=== PATIENT | male | born 1955 | race Caucasian/White ===

== ENCOUNTER 2016-11-23 06:43 | Inpatient (IN) | payer BC ==
[~2016-11-23] VITALS: Ht 180.3 cm; Wt 82.0 kg
[~2016-11-23 06:43] MED LIST: SIMV-13 PO
[2016-11-23] MEDS ORDERED: IODIXANOL 320MG/ML 100ML BTL IV ONE (07:30)
[2016-11-23] MEDS ORDERED: LIDOCAINE 2%HCL (LOCAL ANESTH.) INJ 20ML MDV ONE (07:30)
[2016-11-23] MEDS ORDERED: ANGIOMAX 250 MG VIAL IV ONE (08:13)
[2016-11-23] MEDS ORDERED: SODIUM CHL 0.9% 50 ML ONE (08:14)
[2016-11-23] MEDS ORDERED: fentaNYL CITRATE 100 MCG/2 ML VL ONE (08:14)
[2016-11-23] MEDS ORDERED: VERAPAMIL 2.5MG/ML INJ 2ML VIAL IV ONE (08:14)
[2016-11-23] MEDS ORDERED: MIDAZOLAM HCL 1MG/1ML-2 ML VIAL ONE (08:14)
[2016-11-23] MEDS ORDERED: EPTIFIBATIDE INJ (2MG/ML) 10ML VIAL IV ONE (08:16)
[2016-11-23] MEDS ORDERED: HEPARIN SODIUM (PORCINE) 5000 UNITS/ML 1ML VIAL ONE (09:03)
[2016-11-23] MEDS ORDERED: ZOLPIDEM TARTRATE 5 MG TAB PO PRN (12:30)
[2016-11-23] MEDS ORDERED: MORPHINE SULF INJ 2 MG/ML SYRINGE 1ML IV PRN (14:45)
[2016-11-23] MEDS ORDERED: NITROGLYCERIN 0.4 MG SL TAB SL PRN (14:45)
[2016-11-23 17:40] VITALS: BP 130/69
[2016-11-23 18:19] VITALS: BP 130/69
[2016-11-23 18:30] VITALS: BP 126/70
[2016-11-23] MEDS: SODIUM CHLORIDE 0.9% 1,000 ML IV SCH ×2 (18:35→23:24)
[2016-11-23 19:00] VITALS: BP 116/69
[2016-11-23 21:00] VITALS: BP 124/80
[2016-11-23] MEDS: MUPIROCIN 2% OINT 22GM TOP SCH (21:00)
[2016-11-23] MEDS ORDERED: CHLORHEXIDINE 0.12% ORAL rinse 473ML MT ONE (22:29)
[2016-11-23 23:00] VITALS: BP 124/69
[2016-11-24] VITALS (46 sets, daily range): BP systolic 19–126; BP diastolic 5–80
[2016-11-24] MEDS ORDERED: CHLORHEXIDINE 4% TOPICAL soln 473ML TOP ONE (02:00)
[2016-11-24 03:46] LABS: Basophils # (auto) 0.1 uL; Basophils % (auto) 1.7 % (0.0-2.0); DEFINITIVE VIEW TRANSMISSION; Eosinophils # (auto) 0.1 uL; Eosinophils % (auto) 1.4 % (0.0-7.0); Hematocrit 47.2 % (41.0-53.0); Hemoglobin 13.4 g/dL (13.5-17.5); Lymphocytes # (auto) 1.6 uL; Lymphocytes % (auto) 19.6 % (10.0-50.0); Mean Corpuscular Hemoglobin 26.4 pg (28.0-32.0); Mean Corpuscular Hgb Conc. 28.4 g/dL (32.0-36.0); Mean Corpuscular Volume 92.8 fL (80.0-100.0); Mean Platelet Volume 9.3 fL (7.4-10.4); Monocytes # (auto) 0.5 uL; Monocytes % (auto) 6.3 % (0.0-12.0); Neutrophils # (auto) 5.7 uL; Platelet Count (auto) 220 10^3/uL (140-450); Red Cell Distribution Width 12.3 % (11.6-16.0)
[2016-11-24 03:59] LABS: INR 1.1 (0.9-1.15); Partial Thromboplastin Time 29.3 sec (22.64-33.71); Prothrombin Time 11.3 sec (9.37-12.3)
[2016-11-24 04:05] LABS: BUN/Creatinine Ratio 17.2; Calcium 8.1 mg/dL (8.5-10.1); Magnesium 2.4 mg/dL (1.6-2.6); Potassium 3.8 mmol/L (3.5-5.1)
[2016-11-24] MEDS ORDERED: ACCU-CHEK COMFORT CURVE STRIP VI ONE (06:00)
[2016-11-24] MEDS ORDERED: CHLORHEXIDINE 0.12% ORAL rinse 473ML MT ONE (06:00)
[2016-11-24] MEDS: MUPIROCIN 2% OINT 22GM TOP SCH (06:13)
[2016-11-24] MEDS ORDERED: ROCURONIUM 10MG/ML 10ML VIAL IV ONE ×2 (06:48→09:33)
[2016-11-24] MEDS ORDERED: ePHEDrine SULFATE 50 MG/ML AMP ONE (06:53)
[2016-11-24] MEDS ORDERED: LIDOCAINE 2%HCL (LOCAL ANESTH.) INJ 20ML MDV ONE (06:53)
[2016-11-24] MEDS ORDERED: ceFAZolin 1GM/50ML D5W 50 ML IV ONE (07:00)
[2016-11-24] MEDS ORDERED: VANCOMYCIN 1GM/250ML D5W 250 ML IV ONE (07:00)
[2016-11-24] MEDS ORDERED: MIDAZOLAM HCL 1MG/1ML-2 ML VIAL ONE (07:07)
[2016-11-24] MEDS ORDERED: NEOMYCIN-BACITRACIN-POLYM 15GM TOP OINT TOP ONE (07:20)
[2016-11-24] MEDS ORDERED: PAPAVERINE HCL 60 MG/2 ML 2ML VIAL ONE (07:20)
[2016-11-24] MEDS ORDERED: HEPARIN 1,000 UNITS/ml 1ML VIAL ONE (07:20)
[2016-11-24] MEDS ORDERED: ceFAZolin 1GM VL ONE ×2 (07:20→08:20)
[2016-11-24] MEDS ORDERED: PHENYLEPHRINE INJ 20 MG in NS 0.9% 248 ML IV ONE (08:00)
[2016-11-24] MEDS ORDERED: EPINEPHrine HCL INJECTION 4 MG in D5W 5% 250 ML IV ONE (08:00)
[2016-11-24] MEDS ORDERED: HEPARIN 30000 UNITS in SODIUM CHLORIDE 0.9% 1000 ML IV ONE (08:00)
[2016-11-24] MEDS ORDERED: InsuLIN R (HUMAN) 100 UNITS in SODIUM CHL 0.9% 99 ML IV ONE (08:00)
[2016-11-24] MEDS ORDERED: AMINOCAPROIC ACID 5 GM in SODIUM CHL 0.9% 250 ML IV ONE (08:00)
[2016-11-24] MEDS ORDERED: VASOPRESSIN 50 UNITS in SODIUM CHL 0.9% 247.5 ML IV ONE (08:00)
[2016-11-24] MEDS ORDERED: AMINOCAPROIC ACID 10 GM in SODIUM CHL 0.9% 100 ML IV ONE (08:00)
[2016-11-24] MEDS ORDERED: fentaNYL CITRATE 10 ML ONE (08:18)
[2016-11-24] MEDS ORDERED: ALBUMIN 25% 200 ML IV ONE (08:32)
[2016-11-24] MEDS ORDERED: ALBUMIN 25% 50 ML IV ONE (08:32)
[2016-11-24] MEDS ORDERED: DEXAMETHASONE SODIUM PHOSP 120 MG/30ml VIAL IV ONE (09:45)
[2016-11-24] MEDS ORDERED: HEPARIN SODIUM (PORCINE) 5000 UNITS/ML 1ML VIAL SC ONE (09:45)
[2016-11-24] MEDS ORDERED: CALCIUM CHLOR(10%) 100MG/ML 10ML SYRINGE IV ONE ×2 (09:45→10:46)
[2016-11-24] MEDS ORDERED: MAGNESIUM SULF 50% 40 MEQ/10 ML VL IV ONE (09:45)
[2016-11-24] MEDS ORDERED: LIDOCAINE 50MG/5ML INJ 5ML SYRINGE IV ONE (09:45)
[2016-11-24] MEDS ORDERED: POTASSIUM CHL 2MEQ/ML 20ML IV ONE (09:45)
[2016-11-24] MEDS ORDERED: ADENOSINE 6 MG/2 ML INJ IV ONE (09:45)
[2016-11-24] MEDS ORDERED: PHENYLEPHRINE HCL 10 MG/ML VL IV ONE (09:45)
[2016-11-24] MEDS ORDERED: SODIUM BICARBONATE 8.4% INJ 50ML SYRINGE IV ONE (09:45)
[2016-11-24] MEDS ORDERED: NOREPINEPHRINE BITARTRATE 250 ML IV ONE (10:45)
[2016-11-24] MEDS ORDERED: PHENYLEPHRINE IV 250 ML IV ONE (10:45)
[2016-11-24] MEDS ORDERED: DOPamine 1600MCG/ML 250 ML IV ONE (10:46)
[2016-11-24] MEDS ORDERED: MILRINONE 20MG/100ML 100 ML IV ONE (10:46)
[2016-11-24] MEDS ORDERED: AMIODARONE HCL (50 MG/ ML) 3 ML VIAL IV ONE (10:46)
[2016-11-24] MEDS ORDERED: ALBUMIN 5% 750 ML IV ONE (10:47)
[2016-11-24] MEDS ORDERED: SODIUM BICARBONATE 8.4% INJ 50ML SYRINGE ONE (10:47)
[2016-11-24] MEDS: SODIUM CHLORIDE 0.9% 500 ML IV SCH (12:45)
[2016-11-24] MEDS ORDERED: METOCLOPRAMIDE HCL 5MG/ml INJ 2ml VIAL IV PRN (12:45)
[2016-11-24] MEDS: PROPOFOL 100 ML IV SCH ×2 (12:45→19:48)
[2016-11-24] MEDS ORDERED: MORPHINE SULFATE 4 MG/ML SYRG IV PRN (12:45)
[2016-11-24] MEDS: NOREPINEPHRINE BITARTRATE 250 ML IV SCH (12:45)
[2016-11-24] MEDS ORDERED: ONDANSETRON HCL 4 MG/2 ML VIAL IV PRN (12:45)
[2016-11-24] MEDS ORDERED: INSULIN DRIP 100 UNIT/100ML 100 ML IV SCH (12:45)
[2016-11-24] MEDS ORDERED: ALBUMIN 5% 250 ML IV PRN (12:45)
[2016-11-24] MEDS ORDERED: MAGNESIUM SULFATE 1GM/100ML 100 ML IV PRN (12:45)
[2016-11-24] MEDS: MILRINONE 20MG/100ML 100 ML IV SCH (12:45)
[2016-11-24] MEDS: NICARDIPINE 25MG/250ML BAG KIT 250 ML IV SCH ×3 (12:45→22:45)
[2016-11-24] MEDS ORDERED: DEXTROSE (50%) 50ML SYRG IV PRN (12:45)
[2016-11-24] MEDS ORDERED: AMIODARONE HCL 150 MG in D5W 5% 100 ML IV ONE (12:45)
[2016-11-24] MEDS ORDERED: NITROGLYCERIN 50MG/250ML 250 ML IV SCH (12:45)
[2016-11-24] MEDS: PHENYLEPHRINE IV 250 ML IV SCH ×2 (12:45→21:07)
[2016-11-24] MEDS ORDERED: SODIUM BICARBONATE 8.4% INJ 50ML SYRINGE IV PRN (12:45)
[2016-11-24] MEDS: D5W/SOD CHL 0.45% 1,000 ML IV SCH (12:45)
[2016-11-24] MEDS ORDERED: AMIODARONE HCL 900 MG in DEXTROSE 500 ML IV SCH ×2 (13:00→19:00)
[2016-11-24] MEDS: ACCU-CHEK COMFORT CURVE STRIP VI SCH ×10 (13:00→23:00)
[2016-11-24] MEDS ORDERED: PROTAMINE SULFATE 250 MG/25 ML VL IV ONE (13:15)
[2016-11-24 13:28] LABS: Basophils # (auto) 0.3 uL; Basophils % (auto) 1.3 % (0.0-2.0); Eosinophils # (auto) 0 uL; Eosinophils % (auto) 0.1 % (0.0-7.0); Hematocrit 40.4 % (41.0-53.0); Hemoglobin 13.4 g/dL (13.5-17.5); Lymphocytes # (auto) 0.9 uL; Lymphocytes % (auto) 4.5 % (10.0-50.0); Mean Corpuscular Hemoglobin 30.7 pg (28.0-32.0); Mean Corpuscular Hgb Conc. 33.2 g/dL (32.0-36.0); Mean Corpuscular Volume 92.5 fL (80.0-100.0); Mean Platelet Volume 9.5 fL (7.4-10.4); Monocytes # (auto) 0.4 uL; Monocytes % (auto) 2.2 % (0.0-12.0); Neutrophils # (auto) 18.3 uL; Neutrophils % (auto) 91.9 % (37.0-80.0); Platelet Count (auto) 151 10^3/uL (140-450); Red Cell Distribution Width 12.1 % (11.6-16.0); SUSPECT VIEW TRANSMISSION; White Blood Cell 19.9 10^3/uL (4.4-10.8)
[2016-11-24 13:40] LABS: Partial Thromboplastin Time 26.4 sec (22.64-33.71)
[2016-11-24 13:41] LABS: INR 1.23 (0.9-1.15); Prothrombin Time 12.7 sec (9.37-12.3)
[2016-11-24 13:46] LABS: Albumin 3.5 g/dL (3.4-5.0); Calcium 7.7 mg/dL (8.5-10.1); Magnesium 3.5 mg/dL (1.6-2.6); Phosphorus 1.4 mg/dL (2.6-4.90); Potassium 4.2 mmol/L (3.5-5.1); Total Protein 5.3 g/dL (6.4-8.2)
[2016-11-24] MEDS: ceFAZolin 1GM 2 GM in D5W 5% 100 ML IV SCH ×2 (14:00→22:30)
[2016-11-24] MEDS ORDERED: SODIUM PHOSPHATES 20 MEQ in SODIUM CHL 0.9% 100 ML IV ONE (14:45)
[2016-11-24] MEDS ORDERED: CALCIUM GLUC 4.65 MEQ/10ML 4.65 MEQ in SODIUM CHL 0.9% 50 ML IV ONE (14:45)
[2016-11-24] MEDS: VANCOMYCIN 1GM/250ML D5W 250 ML IV SCH (17:50)
[2016-11-24] MEDS: ACETAMINOPHEN IV 100 ML IV SCH (17:51)
[2016-11-24] MEDS: POTASSIUM CHL 20MEQ/100ML 100 ML IV PRN ×4 (19:16→23:09)
[2016-11-24] MEDS: CHLORHEXIDINE 0.12% ORAL rinse 473ML MT SCH (22:00)
[2016-11-24 22:44] LABS: Basophils # (auto) 0 uL; Eosinophils # (auto) 0 uL; Hematocrit 35.4 % (41.0-53.0); Hemoglobin 11.7 g/dL (13.5-17.5); Lymphocytes # (auto) 0.4 uL; Lymphocytes % (auto) 2.5 % (10.0-50.0); Mean Corpuscular Hemoglobin 30.6 pg (28.0-32.0); Mean Corpuscular Hgb Conc. 33.1 g/dL (32.0-36.0); Mean Corpuscular Volume 92.5 fL (80.0-100.0); Monocytes # (auto) 0.4 uL; Monocytes % (auto) 2.6 % (0.0-12.0); Neutrophils # (auto) 16.4 uL; Neutrophils % (auto) 94.9 % (37.0-80.0); Platelet Count (auto) 194 10^3/uL (140-450); White Blood Cell 17.3 10^3/uL (4.4-10.8)
[2016-11-24 22:53] LABS: BUN/Creatinine Ratio 13.6; Calcium 7.3 mg/dL (8.5-10.1); Magnesium 2.8 mg/dL (1.6-2.6); Phosphorus 2.2 mg/dL (2.6-4.90); Potassium 3.9 mmol/L (3.5-5.1)
[2016-11-25] VITALS (87 sets, daily range): BP systolic 17–143; BP diastolic 5–143
[2016-11-25] MEDS: MILRINONE 20MG/100ML 100 ML IV SCH ×2 (00:02→11:19)
[2016-11-25] MEDS: POTASSIUM CHL 20MEQ/100ML 100 ML IV PRN ×3 (00:09→03:31)
[2016-11-25] MEDS: ACCU-CHEK COMFORT CURVE STRIP VI SCH ×14 (00:26→20:09)
[2016-11-25] MEDS: ACETAMINOPHEN IV 100 ML IV SCH ×3 (00:26→12:17)
[2016-11-25] MEDS ORDERED: AMIODARONE HCL 900 MG IV ONE (01:29)
[2016-11-25] MEDS: PROPOFOL 100 ML IV SCH ×3 (01:31→18:27)
[2016-11-25] MEDS ORDERED: AMIODARONE HCL 900 MG in DEXTROSE 500 ML IV SCH ×2 (02:21→08:21)
[2016-11-25] MEDS: D5W/SOD CHL 0.45% 1,000 ML IV SCH ×4 (03:30→20:45)
[2016-11-25] MEDS: NICARDIPINE 25MG/250ML BAG KIT 250 ML IV SCH ×3 (03:45→13:44)
[2016-11-25 05:13] LABS: Magnesium 2.6 mg/dL (1.6-2.6); Potassium 4.4 mmol/L (3.5-5.1)
[2016-11-25 05:16] LABS: BUN/Creatinine Ratio 14.9
[2016-11-25 05:20] LABS: Hematocrit 35.3 % (41.0-53.0); Hemoglobin 11.6 g/dL (13.5-17.5); Mean Corpuscular Hemoglobin 30.4 pg (28.0-32.0); Mean Corpuscular Hgb Conc. 32.7 g/dL (32.0-36.0); Mean Corpuscular Volume 92.8 fL (80.0-100.0); Mean Platelet Volume 10.4 fL (7.4-10.4); Platelet Count (auto) 202 10^3/uL (140-450); Red Cell Distribution Width 12.7 % (11.6-16.0); SUSPECT VIEW TRANSMISSION; White Blood Cell 22.4 10^3/uL (4.4-10.8)
[2016-11-25 05:25] LABS: Metamyelocytes % 0; Myelocytes % 0; Promyelocytes % 0; Reactive Lymphocytes 0
[2016-11-25 05:27] LABS: Phosphorus 2.3 mg/dL (2.6-4.90)
[2016-11-25 05:45] LABS: Hypersegmented Neutrophils Present
[2016-11-25] MEDS ORDERED: CALCIUM GLUC 4.65 MEQ/10ML 4.65 MEQ in SODIUM CHL 0.9% 50 ML IV ONE (05:45)
[2016-11-25 05:46] LABS: Platelet Estimate Adequate; RBC Morphology Normal
[2016-11-25] MEDS: ceFAZolin 1GM 2 GM in D5W 5% 100 ML IV SCH ×3 (05:51→22:00)
[2016-11-25] MEDS: VANCOMYCIN 1GM/250ML D5W 250 ML IV SCH ×2 (06:00→18:26)
[2016-11-25] MEDS: CHLORHEXIDINE 0.12% ORAL rinse 473ML MT SCH ×2 (09:48→22:00)
[2016-11-25] MEDS: PANTOPRAZOLE SODIUM 40 MG/10 ML VIAL IV SCH (10:04)
[2016-11-25] MEDS ORDERED: DEXTROSE (50%) 50ML SYRG IV PRN (12:00)
[2016-11-25] MEDS: InsuLIN REG 1unit/0.01ml Soln (100units/ml) SC SCH ×3 (12:20→20:00)
[2016-11-25] MEDS: NOREPINEPHRINE BITARTRATE 250 ML IV SCH (12:45)
[2016-11-25] MEDS: SODIUM CHLORIDE 0.9% 500 ML IV SCH (12:45)
[2016-11-25] MEDS: MORPHINE SULFATE 4 MG/ML SYRG IV PRN ×2 (13:15→17:34)
[2016-11-25 13:56] LABS: Albumin 3.3 g/dL (3.4-5.0); Bilirubin, Total 0.5 mg/dL (0.2-1.0); Calcium 7.9 mg/dL (8.5-10.1); Phosphorus 3.3 mg/dL (2.6-4.90); Potassium 4.2 mmol/L (3.5-5.1); Total Protein 5.3 g/dL (6.4-8.2)
[2016-11-25] MEDS ORDERED: ASPirin 81 mg TAB PO ONE ×2 (14:15→16:00)
[2016-11-25] MEDS ORDERED: METOPROLOL TARTRATE 25 MG TAB PO ONE (14:15)
[2016-11-25] MEDS: HYDROcodone-ACET 10/325MG TAB PO PRN ×2 (17:07→22:28)
[2016-11-25] MEDS: IPRATROPIUM BROM 0.5 MG/2.5ML INH SOL NEB PRN (18:25)
[2016-11-25] MEDS ORDERED: MORPHINE SULF INJ 2 MG/ML SYRINGE 1ML ONE (19:43)
[2016-11-25] MEDS: MORPHINE SULF INJ 2 MG/ML SYRINGE 1ML IV PRN (20:02)
[2016-11-25] MEDS ORDERED: METOPROLOL TARTRATE 25 MG TAB PO SCH ×2 (22:00)
[2016-11-25] MEDS: AMIODARONE HCL 200 MG TAB PO SCH (22:08)
[2016-11-26] VITALS (75 sets, daily range): BP systolic 92–119; BP diastolic 45–70
[2016-11-26] MEDS: InsuLIN REG 1unit/0.01ml Soln (100units/ml) SC SCH ×6 (04:00→22:00)
[2016-11-26] MEDS: ACCU-CHEK COMFORT CURVE STRIP VI SCH ×6 (04:30→22:00)
[2016-11-26] MEDS: HYDROcodone-ACET 10/325MG TAB PO PRN ×4 (04:36→22:23)
[2016-11-26] MEDS: D5W/SOD CHL 0.45% 1,000 ML IV SCH (04:45)
[2016-11-26 04:53] LABS: Basophils # (auto) 0.1 uL; Basophils % (auto) 0.4 % (0.0-2.0); Eosinophils # (auto) 0 uL; Eosinophils % (auto) 0.1 % (0.0-7.0); Hematocrit 32.5 % (41.0-53.0); Hemoglobin 10.8 g/dL (13.5-17.5); Lymphocytes # (auto) 1.7 uL; Lymphocytes % (auto) 9.5 % (10.0-50.0); Mean Corpuscular Hemoglobin 30.6 pg (28.0-32.0); Mean Corpuscular Hgb Conc. 33.1 g/dL (32.0-36.0); Mean Corpuscular Volume 92.4 fL (80.0-100.0); Mean Platelet Volume 9.9 fL (7.4-10.4); Monocytes # (auto) 1.4 uL; Monocytes % (auto) 7.6 % (0.0-12.0); Neutrophils # (auto) 14.8 uL; Neutrophils % (auto) 82.4 % (37.0-80.0); Platelet Count (auto) 161 10^3/uL (140-450); Red Cell Distribution Width 13.2 % (11.6-16.0); White Blood Cell 17.9 10^3/uL (4.4-10.8)
[2016-11-26 05:11] LABS: BUN/Creatinine Ratio 13.7; Calcium 7.5 mg/dL (8.5-10.1); Potassium 4.3 mmol/L (3.5-5.1)
[2016-11-26] MEDS: ceFAZolin 1GM 2 GM in D5W 5% 100 ML IV SCH (06:00)
[2016-11-26] MEDS: MORPHINE SULF INJ 2 MG/ML SYRINGE 1ML IV PRN (06:13)
[2016-11-26] MEDS: VANCOMYCIN 1GM/250ML D5W 250 ML IV SCH (06:24)
[2016-11-26] MEDS: CHLORHEXIDINE 0.12% ORAL rinse 473ML MT SCH ×2 (10:00→22:25)
[2016-11-26] MEDS ORDERED: POTASSIUM CHLORIDE 8 MEQ TAB PO SCH (10:00)
[2016-11-26] MEDS: FUROSEMIDE 40 MG TAB PO SCH (10:00)
[2016-11-26] MEDS: PANTOPRAZOLE SODIUM 40 MG/10 ML VIAL IV SCH (10:00)
[2016-11-26] MEDS ORDERED: ALBUMIN 25% 50 ML IV ONE ×3 (10:10→22:00)
[2016-11-26] MEDS ORDERED: POTASSIUM CHL 10% (20 MEQ/15ML) ORAL SOLN PO PRN (10:30)
[2016-11-26] MEDS ORDERED: DEXTROSE (50%) 50ML SYRG IV PRN (10:30)
[2016-11-26] MEDS ORDERED: CALCIUM GLUC 4.65 MEQ/10ML 4.65 MEQ in SODIUM CHL 0.9% 50 ML IV ONE (10:30)
[2016-11-26] MEDS ORDERED: NITROGLYCERIN 0.4MG/HR TOPICAL PATCH TD ONE ×2 (10:45→16:45)
[2016-11-26] MEDS: ASPirin 81 mg TAB PO SCH (10:46)
[2016-11-26] MEDS: AMIODARONE HCL 200 MG TAB PO SCH ×2 (10:46→22:24)
[2016-11-26] MEDS: METOPROLOL TARTRATE 25 MG TAB PO SCH ×2 (10:46→22:22)
[2016-11-26] MEDS: SODIUM CHLORIDE 0.9% 1,000 ML IV SCH (10:47)
[2016-11-26] MEDS ORDERED: MILK OF MAGNESIA 30ML SUSP PO PRN (12:00)
[2016-11-26] MEDS: Boost Glucose Control 8 Ounces PO SCH ×2 (12:00→18:00)
[2016-11-26] MEDS: SODIUM CHLORIDE 0.9% 500 ML IV SCH (12:45)
[2016-11-26] MEDS: fentaNYL CITRATE 100 MCG/2 ML VL IV PRN ×3 (14:06→20:24)
[2016-11-26] MEDS ORDERED: THROAT LOZENGES(CEPASTAT) MT PRN (16:30)
[2016-11-26] MEDS ORDERED: ACETAMINOPHEN 325 MG TAB PO PRN (16:30)
[2016-11-26] MEDS: SALINE 0.65 % NASAL SPRAY 45ML BOTTLE SCH ×2 (18:00→22:00)
[2016-11-26] MEDS: DOCUSATE SOD 100 MG CAP PO SCH (22:23)
[2016-11-27] VITALS (50 sets, daily range): BP systolic 83–121; BP diastolic 48–78
[2016-11-27] MEDS: fentaNYL CITRATE 100 MCG/2 ML VL IV PRN ×4 (02:24→21:40)
[2016-11-27 04:32] LABS: Basophils # (auto) 0 uL; Basophils % (auto) 0.3 % (0.0-2.0); Eosinophils # (auto) 0 uL; Eosinophils % (auto) 0.2 % (0.0-7.0); Hematocrit 30.2 % (41.0-53.0); Hemoglobin 9.8 g/dL (13.5-17.5); Lymphocytes # (auto) 1.5 uL; Lymphocytes % (auto) 11.7 % (10.0-50.0); Mean Corpuscular Hemoglobin 30.4 pg (28.0-32.0); Mean Corpuscular Hgb Conc. 32.5 g/dL (32.0-36.0); Mean Corpuscular Volume 93.3 fL (80.0-100.0); Mean Platelet Volume 10.6 fL (7.4-10.4); Monocytes # (auto) 1.3 uL; Neutrophils # (auto) 9.7 uL; Neutrophils % (auto) 77.8 % (37.0-80.0); Platelet Count (auto) 134 10^3/uL (140-450); Red Cell Distribution Width 12.3 % (11.6-16.0); SUSPECT VIEW TRANSMISSION; White Blood Cell 12.5 10^3/uL (4.4-10.8)
[2016-11-27] MEDS: HYDROcodone-ACET 10/325MG TAB PO PRN ×3 (04:38→19:52)
[2016-11-27 05:17] LABS: Albumin 2.9 g/dL (3.4-5.0); BUN/Creatinine Ratio 21.2; Bilirubin, Total 0.7 mg/dL (0.2-1.0); Calcium 7.8 mg/dL (8.5-10.1); Magnesium 2.3 mg/dL (1.6-2.6); Potassium 4.6 mmol/L (3.5-5.1); Total Protein 5.6 g/dL (6.4-8.2)
[2016-11-27] MEDS: IPRATROPIUM BROM 0.5 MG/2.5ML INH SOL NEB PRN (05:54)
[2016-11-27] MEDS: SALINE 0.65 % NASAL SPRAY 45ML BOTTLE SCH ×4 (05:58→21:39)
[2016-11-27] MEDS: ACCU-CHEK COMFORT CURVE STRIP VI SCH (06:14)
[2016-11-27] MEDS: InsuLIN REG 1unit/0.01ml Soln (100units/ml) SC SCH (06:15)
[2016-11-27] MEDS: SODIUM CHLORIDE 0.9% 1,000 ML IV SCH ×3 (06:15→16:15)
[2016-11-27] MEDS ORDERED: ALBUMIN 25% 50 ML IV ONE (08:00)
[2016-11-27] MEDS ORDERED: MIDAZOLAM HCL 1MG/1ML-2 ML VIAL ONE (08:15)
[2016-11-27] MEDS: Boost Glucose Control 8 Ounces PO SCH ×3 (08:39→18:30)
[2016-11-27] MEDS: FERROUS SULFATE 325 MG TAB PO SCH ×2 (08:44→17:28)
[2016-11-27] MEDS ORDERED: CALCIUM GLUC 4.65 MEQ/10ML 4.65 MEQ in SODIUM CHL 0.9% 50 ML IV ONE (09:30)
[2016-11-27] MEDS: DOCUSATE SOD 100 MG CAP PO SCH ×2 (09:38→21:38)
[2016-11-27] MEDS: ASPirin 81 mg TAB PO SCH (09:38)
[2016-11-27] MEDS: NITROGLYCERIN 0.4MG/HR TOPICAL PATCH TD SCH (09:39)
[2016-11-27] MEDS: AMIODARONE HCL 200 MG TAB PO SCH ×2 (09:39→21:38)
[2016-11-27] MEDS: PANTOPRAZOLE 40 MG TAB PO SCH (09:41)
[2016-11-27] MEDS: FUROSEMIDE 40 MG TAB PO SCH (09:41)
[2016-11-27] MEDS: CHLORHEXIDINE 0.12% ORAL rinse 473ML MT SCH ×2 (09:42→21:39)
[2016-11-27] MEDS: POTASSIUM CHL 20 Meq TABLET PO SCH (09:42)
[2016-11-27] MEDS: METOPROLOL TARTRATE 25 MG TAB PO SCH ×2 (11:49→21:39)
[2016-11-27] MEDS: IPRATROPIUM BROM 0.5 MG/2.5ML INH SOL NEB SCH ×2 (14:02→23:02)
[2016-11-27] MEDS ORDERED: THROAT LOZENGES(CEPASTAT) MT PRN (21:30)
[2016-11-27] MEDS: ATORVASTATIN 20 MG TAB PO SCH (21:38)
[2016-11-28] VITALS (34 sets, daily range): BP systolic 97–115; BP diastolic 43–77
[2016-11-28] MEDS: fentaNYL CITRATE 100 MCG/2 ML VL IV PRN ×2 (01:31→09:57)
[2016-11-28 03:42] LABS: Basophils # (auto) 0 uL; Eosinophils # (auto) 0.1 uL; Eosinophils % (auto) 0.8 % (0.0-7.0); Hematocrit 28.8 % (41.0-53.0); Hemoglobin 9.7 g/dL (13.5-17.5); Lymphocytes # (auto) 1.4 uL; Lymphocytes % (auto) 12.5 % (10.0-50.0); Mean Corpuscular Hemoglobin 30.8 pg (28.0-32.0); Mean Corpuscular Hgb Conc. 33.5 g/dL (32.0-36.0); Mean Corpuscular Volume 91.8 fL (80.0-100.0); Mean Platelet Volume 9.9 fL (7.4-10.4); Neutrophils # (auto) 8.9 uL; Neutrophils % (auto) 77.7 % (37.0-80.0); Platelet Count (auto) 181 10^3/uL (140-450); Red Cell Distribution Width 12.9 % (11.6-16.0); White Blood Cell 11.4 10^3/uL (4.4-10.8)
[2016-11-28 04:04] LABS: Albumin 3.1 g/dL (3.4-5.0); Calcium 8.1 mg/dL (8.5-10.1); Magnesium 2.3 mg/dL (1.6-2.6); Potassium 4.6 mmol/L (3.5-5.1)
[2016-11-28 04:05] LABS: BUN/Creatinine Ratio 22.7
[2016-11-28 04:09] LABS: Bilirubin, Total 0.6 mg/dL (0.2-1.0)
[2016-11-28] MEDS: SALINE 0.65 % NASAL SPRAY 45ML BOTTLE SCH ×4 (05:45→21:40)
[2016-11-28] MEDS: IPRATROPIUM BROM 0.5 MG/2.5ML INH SOL NEB SCH ×3 (06:06→22:25)
[2016-11-28] MEDS: HYDROcodone-ACET 10/325MG TAB PO PRN ×3 (06:08→20:20)
[2016-11-28] MEDS: Boost Glucose Control 8 Ounces PO SCH ×3 (08:29→18:00)
[2016-11-28] MEDS: FERROUS SULFATE 325 MG TAB PO SCH ×2 (08:29→18:00)
[2016-11-28] MEDS: FUROSEMIDE 40 MG TAB PO SCH (09:57)
[2016-11-28] MEDS: CHLORHEXIDINE 0.12% ORAL rinse 473ML MT SCH ×2 (09:57→21:40)
[2016-11-28] MEDS: AMIODARONE HCL 200 MG TAB PO SCH ×2 (09:57→21:41)
[2016-11-28] MEDS: POTASSIUM CHL 20 Meq TABLET PO SCH (09:57)
[2016-11-28] MEDS: ASPirin 81 mg TAB PO SCH (09:57)
[2016-11-28] MEDS: DOCUSATE SOD 100 MG CAP PO SCH ×2 (09:57→21:40)
[2016-11-28] MEDS: PANTOPRAZOLE 40 MG TAB PO SCH (09:57)
[2016-11-28] MEDS: METOPROLOL TARTRATE 25 MG TAB PO SCH ×2 (09:57→21:41)
[2016-11-28] MEDS: NITROGLYCERIN 0.4MG/HR TOPICAL PATCH TD SCH (09:58)
[2016-11-28] MEDS ORDERED: METOPROLOL TARTRATE 25 MG TAB ONE (13:21)
[2016-11-28] MEDS: ATORVASTATIN 20 MG TAB PO SCH (21:41)
[2016-11-29] VITALS (18 sets, daily range): BP systolic 93–134; BP diastolic 48–76
[2016-11-29 03:17] LABS: Basophils # (auto) 0 uL; Basophils % (auto) 0.4 % (0.0-2.0); Eosinophils # (auto) 0.2 uL; Eosinophils % (auto) 1.9 % (0.0-7.0); Hemoglobin 9.6 g/dL (13.5-17.5); Lymphocytes # (auto) 1.6 uL; Lymphocytes % (auto) 14.2 % (10.0-50.0); Mean Corpuscular Hemoglobin 30.4 pg (28.0-32.0); Mean Corpuscular Hgb Conc. 33.2 g/dL (32.0-36.0); Mean Corpuscular Volume 91.5 fL (80.0-100.0); Mean Platelet Volume 9.9 fL (7.4-10.4); Monocytes # (auto) 1.1 uL; Monocytes % (auto) 9.7 % (0.0-12.0); Neutrophils # (auto) 8.4 uL; Neutrophils % (auto) 73.8 % (37.0-80.0); Platelet Count (auto) 233 10^3/uL (140-450); Red Cell Distribution Width 12.9 % (11.6-16.0); White Blood Cell 11.4 10^3/uL (4.4-10.8)
[2016-11-29 03:29] LABS: Albumin 2.9 g/dL (3.4-5.0); Calcium 8.1 mg/dL (8.5-10.1); Magnesium 2.4 mg/dL (1.6-2.6); Potassium 4.1 mmol/L (3.5-5.1)
[2016-11-29 03:30] LABS: BUN/Creatinine Ratio 23.8
[2016-11-29 03:34] LABS: Bilirubin, Total 0.5 mg/dL (0.2-1.0); Total Protein 5.9 g/dL (6.4-8.2)
[2016-11-29] MEDS: SODIUM CHLORIDE 0.9% 1,000 ML IV SCH (04:56)
[2016-11-29] MEDS: HYDROcodone-ACET 10/325MG TAB PO PRN ×2 (05:01→11:27)
[2016-11-29] MEDS: SALINE 0.65 % NASAL SPRAY 45ML BOTTLE SCH ×2 (06:00→12:00)
[2016-11-29] MEDS: IPRATROPIUM BROM 0.5 MG/2.5ML INH SOL NEB SCH ×2 (06:25→13:46)
[2016-11-29] MEDS: Boost Glucose Control 8 Ounces PO SCH ×2 (08:25→11:37)
[2016-11-29] MEDS: FERROUS SULFATE 325 MG TAB PO SCH (08:25)
[2016-11-29] MEDS: CHLORHEXIDINE 0.12% ORAL rinse 473ML MT SCH (10:00)
[2016-11-29] MEDS ORDERED: ASPirin 81 mg TAB PO SCH (10:00)
[2016-11-29] MEDS: PANTOPRAZOLE 40 MG TAB PO SCH (11:22)
[2016-11-29] MEDS: DOCUSATE SOD 100 MG CAP PO SCH (11:23)
[2016-11-29] MEDS: POTASSIUM CHL 20 Meq TABLET PO SCH (11:23)
[2016-11-29] MEDS: FUROSEMIDE 40 MG TAB PO SCH (11:24)
[2016-11-29] MEDS: METOPROLOL TARTRATE 25 MG TAB PO SCH (11:24)
[2016-11-29] MEDS: NITROGLYCERIN 0.4MG/HR TOPICAL PATCH TD SCH (11:25)
[2016-11-29] MEDS: AMIODARONE HCL 200 MG TAB PO SCH (11:26)
[2016-11-29] MEDS ORDERED: HYDR-531 PO (11:39)
[2016-11-29] MEDS ORDERED: ASPI81CH43 PO (11:39)
[2016-11-29] MEDS ORDERED: FER325T PO (11:39)
[2016-11-29] MEDS ORDERED: MET25T PO (11:39)
[2016-11-29] MEDS ORDERED: AMI200T PO (11:39)
[2016-11-29] MEDS ORDERED: ATOR20TA50 PO (11:39)
[2016-11-29] MEDS ORDERED: FURO40TA4 PO (11:39)
[2016-11-29] MEDS ORDERED: DOCU100C8 PO (11:39)
== END 2016-11-29 17:41 | disposition home health service (06) | DRG 234 ==
LOC: CATH 06:43 → ICU WEST 06:44
PROVIDERS: ADMIT Internal Medicine; ATTEND Hospitalist
PROC: 4A023N7 Measurement of Cardiac Sampling and Pressure, Left Heart, Percutaneous Approach (ICD-10-PCS; principal; 2016-11-23)
PROC: B2111ZZ Fluoroscopy of Multiple Coronary Arteries using Low Osmolar Contrast (ICD-10-PCS; 2016-11-23)
PROC: 5A1935Z Respiratory Ventilation, Less than 24 Consecutive Hours (ICD-10-PCS; 2016-11-24)
PROC: 0BH17EZ Insertion of Endotracheal Airway into Trachea, Via Natural or Artificial Opening (ICD-10-PCS; 2016-11-24)
PROC: 02100Z9 Bypass Coronary Artery, One Artery from Left Internal Mammary, Open Approach (ICD-10-PCS; 2016-11-25)
PROC: 021109W Bypass Coronary Artery, Two Arteries from Aorta with Autologous Venous Tissue, Open Approach (ICD-10-PCS; 2016-11-25)
PROC: 06BP4ZZ Excision of Right Saphenous Vein, Percutaneous Endoscopic Approach (ICD-10-PCS; 2016-11-25)
PROC: 5A1221Z Performance of Cardiac Output, Continuous (ICD-10-PCS; 2016-11-25)
PROC: 5A09357 Assistance with Respiratory Ventilation, Less than 24 Consecutive Hours, Continuous Positive Airway Pressure (ICD-10-PCS; 2016-11-26)
DX: I25.110 Atherosclerotic heart disease of native coronary artery with unstable angina pectoris (principal); E78.5 Hyperlipidemia, unspecified; I12.9 Hypertensive chronic kidney disease with stage 1 through stage 4 chronic kidney disease, or unspecified chronic kidney disease; I25.82 Chronic total occlusion of coronary artery; D72.829 Elevated white blood cell count, unspecified; N18.9 Chronic kidney disease, unspecified; Z82.49 Family history of ischemic heart disease and other diseases of the circulatory system; Z80.0 Family history of malignant neoplasm of digestive organs; Z79.899 Other long term (current) drug therapy; Z85.46 Personal history of malignant neoplasm of prostate
CPT/HCPCS: 36415; 36600; 71010; 80048; 80053; 82805; 82962; 83735; 84100; 84132; 85007; 85025; 85027; 85049; 85576; 85610; 85730; 86850; 86900; 86901; 86920; 87081; 93005; 93458; 93886; 93970; 94002; 94003; 94640; 94660; 99152; C1751; C1768; C9113; J0131; J0153; J0171; J0690; J1100; J1644; J1815; J2250; J2440; J2704; J2720; J3480; J3490; J7060; Q9967

== ENCOUNTER 2017-01-09 09:56 | Inpatient (IN) | payer BC ==
[~2017-01-09] VITALS: Ht 180.3 cm; Wt 76.9 kg
[~2017-01-09 09:56] MED LIST changes: +AMI200T PO; +ASPI81CH43 PO; +ATOR20TA50 PO; +DOCU100C8 PO; +FER325T PO; +FURO40TA4 PO; +HYDR-531 PO; +MET25T PO; -SIMV-13 PO
[2017-01-09] MEDS ORDERED: diphenhdrAMINE HCL 50 MG/1 ML VL ONE (10:07)
[2017-01-09] MEDS ORDERED: diphenhdrAMINE HCL 50 MG/1 ML VL IM ONE (10:15)
[2017-01-09 10:33] LABS: Basophils # (auto) 0 uL; Basophils % (auto) 0.4 % (0.0-2.0); Eosinophils # (auto) 0.1 uL; Eosinophils % (auto) 2.1 % (0.0-7.0); Hemoglobin 13.3 g/dL (13.5-17.5); Lymphocytes # (auto) 1.2 uL; Lymphocytes % (auto) 16.1 % (10.0-50.0); Mean Corpuscular Hgb Conc. 32.5 g/dL (32.0-36.0); Mean Corpuscular Volume 89.5 fL (80.0-100.0); Mean Platelet Volume 8.9 fL (7.4-10.4); Monocytes # (auto) 0.4 uL; Monocytes % (auto) 5.9 % (0.0-12.0); Neutrophils # (auto) 5.5 uL; Neutrophils % (auto) 75.5 % (37.0-80.0); Platelet Count (auto) 432 10^3/uL (140-450); Red Cell Distribution Width 14.2 % (11.6-16.0); White Blood Cell 7.2 10^3/uL (4.4-10.8)
[2017-01-09 11:01] LABS: Albumin 3.5 g/dL (3.4-5.0); Alkaline Phosphatase 149 U/L (45-117); Anion Gap 10 (5-15); Aspartate Aminotransferase 19 U/L (15-37); Bilirubin, Total 0.2 mg/dL (0.2-1.0); Blood Urea Nitrogen 22 mg/dL (7-18); Calcium 9.3 mg/dL (8.5-10.1); Carbon Dioxide 27 mmol/L (21-32); Chloride 107 mmol/L (98-107); GFR African American 82 mL/min; GFR Non-African American 68 mL/min; Glucose 101 mg/dL (74-106); Magnesium 2.7 mg/dL (1.6-2.6); Potassium 4.6 mmol/L (3.5-5.1); Sodium 144 mmol/L (136-145); Total Protein 7.8 g/dL (6.4-8.2)
[2017-01-09] MEDS ORDERED: PROMETHAZINE HCL 25 MG/ML 1ML IV PRN (15:45)
[2017-01-09] MEDS ORDERED: LACTULOSE 20Gm/30ML SOLN PO PRN (15:45)
[2017-01-09] MEDS ORDERED: LORazepam 0.5 MG TAB PO PRN (15:45)
[2017-01-09] MEDS ORDERED: MORPHINE SULF INJ 2 MG/ML SYRINGE 1ML IV PRN ×2 (15:45)
[2017-01-09] MEDS ORDERED: HYDROcodone-ACET 5/325MG TAB PO PRN (15:45)
[2017-01-09] MEDS ORDERED: TEMAZEPAM 15 MG CAP PO PRN (15:45)
[2017-01-09] MEDS ORDERED: ALBUTEROL SULF 2.5 MG/0.5ML(0.5%) NEB SOLN NEB PRN (15:45)
[2017-01-09] MEDS ORDERED: NITROGLYCERIN 0.4 MG SL TAB SL PRN (15:45)
[2017-01-09] MEDS ORDERED: ACETAMINOPHEN 500 MG TAB PO PRN (15:45)
[2017-01-09] MEDS ORDERED: ASPirin 81 mg TAB PO ONE (16:15)
[2017-01-09] MEDS ORDERED: POTASSIUM CHL 20 Meq TABLET PO ONE (16:15)
[2017-01-09] MEDS ORDERED: ENOXAPARIN SOD 40 MG/0.4 ML SYRINGE SC ONE (16:15)
[2017-01-09] MEDS ORDERED: LEVOFLOXACIN 500MG 100 ML IV ONE (16:15)
[2017-01-09] MEDS ORDERED: FUROSEMIDE 40 MG/4 ML VIAL IV ONE (16:15)
[2017-01-09 16:26] LABS: B-Type Natriuretic Peptide 188.79 pg/mL (0-100); Temperature: 22.4 C (20.0-25.0)
[2017-01-09] MEDS: FERROUS SULFATE 325 MG TAB PO SCH (17:57)
[2017-01-09] MEDS: ALBUTEROL SULF 2.5 MG/0.5ML(0.5%) NEB SOLN NEB SCH (19:06)
[2017-01-09 20:30] VITALS: BP 124/74
[2017-01-09 21:43] VITALS: BP 119/70
[2017-01-09 22:00] VITALS: BP 124/74
[2017-01-09] MEDS ORDERED: ATORVASTATIN 20 MG TAB PO SCH (22:00)
[2017-01-09] MEDS: AMIODARONE HCL 200 MG TAB PO SCH (22:30)
[2017-01-09] MEDS: DOCUSATE SOD 100 MG CAP PO SCH (22:31)
[2017-01-09] MEDS: METOPROLOL TARTRATE 25 MG TAB PO SCH (22:32)
[2017-01-09] MEDS: SODIUM CHLOR 0.9% PF (SALINE LOCK) 10ML VIAL IV SCH (22:32)
[2017-01-10] MEDS: ALBUTEROL SULF 2.5 MG/0.5ML(0.5%) NEB SOLN NEB SCH ×3 (00:40→11:35)
[2017-01-10] MEDS ORDERED: SIMV-13 PO (01:26)
[2017-01-10 05:00] VITALS: BP 109/74
[2017-01-10] MEDS: SODIUM CHLOR 0.9% PF (SALINE LOCK) 10ML VIAL IV SCH ×2 (05:52→14:24)
[2017-01-10 06:41] LABS: Basophils # (auto) 0.1 uL; Basophils % (auto) 0.7 % (0.0-2.0); Eosinophils # (auto) 0.1 uL; Eosinophils % (auto) 1.3 % (0.0-7.0); Hematocrit 39.5 % (41.0-53.0); Hemoglobin 12.8 g/dL (13.5-17.5); Lymphocytes # (auto) 1.3 uL; Lymphocytes % (auto) 16.6 % (10.0-50.0); Mean Corpuscular Hemoglobin 28.9 pg (28.0-32.0); Mean Corpuscular Hgb Conc. 32.4 g/dL (32.0-36.0); Mean Corpuscular Volume 89.3 fL (80.0-100.0); Mean Platelet Volume 9.5 fL (7.4-10.4); Monocytes # (auto) 0.5 uL; Monocytes % (auto) 6.5 % (0.0-12.0); Neutrophils # (auto) 5.9 uL; Neutrophils % (auto) 74.9 % (37.0-80.0); Platelet Count (auto) 418 10^3/uL (140-450); Red Cell Distribution Width 14.1 % (11.6-16.0); White Blood Cell 7.9 10^3/uL (4.4-10.8)
[2017-01-10 07:00] VITALS: BP 110/64
[2017-01-10 07:06] LABS: B-Type Natriuretic Peptide 91.48 pg/mL (0-100)
[2017-01-10 07:14] LABS: Albumin 3.2 g/dL (3.4-5.0); BUN/Creatinine Ratio 14.7; Bilirubin, Total 0.3 mg/dL (0.2-1.0); Calcium 9.3 mg/dL (8.5-10.1); Potassium 4.5 mmol/L (3.5-5.1)
[2017-01-10 07:20] LABS: Temperature: 21.7 C (20.0-25.0)
[2017-01-10 08:00] VITALS: BP 110/64
[2017-01-10] MEDS ORDERED: LEVOFLOXACIN 500MG 100 ML IV SCH (10:00)
[2017-01-10] MEDS ORDERED: POTASSIUM CHL 20 Meq TABLET PO SCH (10:00)
[2017-01-10] MEDS ORDERED: ENOXAPARIN SOD 40 MG/0.4 ML SYRINGE SC SCH (10:00)
[2017-01-10] MEDS ORDERED: ASPirin 81 mg TAB PO SCH ×2 (10:00)
[2017-01-10] MEDS ORDERED: FUROSEMIDE 40 MG/4 ML VIAL IV SCH (10:00)
[2017-01-10] MEDS: AMIODARONE HCL 200 MG TAB PO SCH (10:13)
[2017-01-10] MEDS: FERROUS SULFATE 325 MG TAB PO SCH (10:13)
[2017-01-10] MEDS: METOPROLOL TARTRATE 25 MG TAB PO SCH (10:13)
[2017-01-10] MEDS: DOCUSATE SOD 100 MG CAP PO SCH (10:13)
[2017-01-10 12:13] VITALS: BP 104/68
[2017-01-10] MEDS ORDERED: LEVO500T3 PO (14:14)
[2017-01-10] MEDS ORDERED: ALBUAER3 IN (14:14)
[2017-01-10 14:56] VITALS: BP 110/64
[2017-01-10 16:32] LABS: Temperature: 21.9 C (20.0-25.0)
== END 2017-01-10 14:02 | disposition home or self-care (01) | DRG 194 ==
LOC: ER 09:56 → TELE 09:57 → TELE-WESTW 20:30
PROVIDERS: ADMIT Internal Medicine; ATTEND Internal Medicine
DX: J18.9 Pneumonia, unspecified organism (principal); J90 Pleural effusion, not elsewhere classified; R25.3 Fasciculation; I25.10 Atherosclerotic heart disease of native coronary artery without angina pectoris; R21 Rash and other nonspecific skin eruption; E78.5 Hyperlipidemia, unspecified; I10 Essential (primary) hypertension; Z95.1 Presence of aortocoronary bypass graft; Z98.890 Other specified postprocedural states; Z90.89 Acquired absence of other organs; Z82.49 Family history of ischemic heart disease and other diseases of the circulatory system; Z80.0 Family history of malignant neoplasm of digestive organs; Z80.1 Family history of malignant neoplasm of trachea, bronchus and lung; Z79.899 Other long term (current) drug therapy
CPT/HCPCS: 36415; 70450; 71020; 80053; 80061; 82550; 82607; 82746; 83735; 83880; 84443; 84484; 85025; 85652; 93005; 93306; 94640; 96365; 96372; 96375; J1956